=== PATIENT | male | born 1965 | race Caucasian/White ===

== ENCOUNTER 2019-11-09 07:48 | Day surgery (SDC) | payer BC, OTHER ==
[~2019-11-09] VITALS: Ht 180.3 cm; Wt 125.6 kg
[~2019-11-09 07:48] MED LIST: ACET1TAB55 PO; ALEV220T22 PO; AMLO10TA5 PO; NS 1,000 ML IV ONE; PANT40TA3 PO
[2019-11-09] MEDS ORDERED: LIDOCAINE 2% INJ 100 MG/5 ML SDV (FOR ANES.) As Ordered ONE (08:47)
[2019-11-09] MEDS ORDERED: propofoL 200 MG/20 ML VIAL As Ordered ONE (08:47)
[2019-11-09] MEDS ORDERED: fentaNYL 100 MCG/2 ML INJECTION (J3010) As Ordered ONE (08:49)
--- NOTE | 2019-11-09 09:30 | ROOR ---
Patient Name: Hiro Farrell Procedure Date: 11/09/2019 9:10 AM Date of : 1965 Age: 54 Room: [facility] Gender: Male Note Status: Finalized Procedure: Upper Endoscopy + Biopsies Indications: Heartburn, Exclusion of Henderson's esophagus Providers: Fabrice Pacheco MD Referring MD: [facility] Sangeeta [facility]ARG[facility], Admin. Requesting Provider: Medicines: Monitored Anesthesia Care Complications: No immediate complications. Procedure: Pre-Anesthesia Assessment: - The heart rate, respiratory rate, oxygen saturations, blood pressure, adequacy of pulmonary ventilation, and response to care were monitored throughout the procedure. The Endoscope was introduced through the mouth, and advanced to the second part of duodenum. The upper GI endoscopy was accomplished without difficulty. The patient tolerated the procedure well. Findings: The Z-line was variable and was found 40 cm from the incisors. Multiple biopsies were obtained with cold forceps for evaluation to rule out Henderson's Esophagus randomly at the gastroesophageal junction. Localized mild inflammation characterized by congestion (edema) and erythema was found on the greater curvature of the stomach. Biopsies were taken with a cold forceps for Helicobacter pylori testing. The examined duodenum was normal. The exam was otherwise without abnormality. Impression: - Z-line variable, 40 cm from the incisors. - Mucosal changes suspicious for gastritis. Biopsied. - Normal examined duodenum. - The examination was otherwise normal. - Multiple biopsies were obtained at the gastroesophageal junction. - The examination was otherwise normal. Recommendation: - Patient has a contact number available for emergencies. The signs and symptoms of potential delayed complications were discussed with the patient. Return to normal activities tomorrow. Written discharge instructions were provided to the patient. - High fiber diet. - Discharge patient to home. - Continue present medications. - Await pathology results. - Telephone GI clinic for pathology results in 1 week. - Return to referring physician. - Repeat upper endoscopy for surveillance based on pathology results. - The findings and recommendations were discussed with the patient's family. Fabrice Pacheco MD Fabrice Pacheco MD 11/09/2019 9:29:49 AM Electronically signed by Fabrice Pacheco MD Number of Addenda: 0 Note Initiated On: 11/09/2019 9:10 AM Estimated Blood Loss: Estimated blood loss: none.
--- NOTE | 2019-11-09 09:51 | ROOR ---
Patient Name: Hiro Farrell Procedure Date: 11/09/2019 9:11 AM Date of : 1965 Age: 54 Room: [facility] Gender: Male Note Status: Finalized Procedure: Total Colonoscopy to Cecum + Cold Snare Polypectomy + Hemoclip Indications: Screening for colorectal malignant neoplasm Providers: Fabrice Pacheco MD Referring MD: [facility], Admin. Requesting Provider: Medicines: Monitored Anesthesia Care Complications: No immediate complications. Procedure: Pre-Anesthesia Assessment: - The heart rate, respiratory rate, oxygen saturations, blood pressure, adequacy of pulmonary ventilation, and response to care were monitored throughout the procedure. The Colonoscope was introduced through the anus and advanced to the cecum, identified by appendiceal orifice and ileocecal valve. The colonoscopy was performed without difficulty. The patient tolerated the procedure well. The quality of the bowel preparation was fair. Findings: The perianal and digital rectal examinations were normal. Non-bleeding internal hemorrhoids were found during retroflexion. The hemorrhoids were small and Grade I (internal hemorrhoids that do not prolapse). Multiple small and large-mouthed diverticula were found in the recto-sigmoid colon, sigmoid colon and descending colon. A small polyp was found at 30 cm proximal to the anus. The polyp was sessile. The polyp was removed with a cold snare. Resection and retrieval were complete. To prevent bleeding after the polypectomy, one hemostatic clip was successfully placed (MR conditional). There was no bleeding at the end of the procedure. The exam was otherwise without abnormality on direct and retroflexion views. Impression: - Preparation of the colon was fair. - Non-bleeding internal hemorrhoids. - Diverticulosis in the recto-sigmoid colon, in the sigmoid colon and in the descending colon. - One small polyp at 30 cm proximal to the anus, removed with a cold snare. Resected and retrieved. Clip (MR conditional) was placed. - The examination was otherwise normal on direct and retroflexion views. - The exam was otherwise normal to the cecum. Recommendation: - Patient has a contact number available for emergencies. The signs and symptoms of potential delayed complications were discussed with the patient. Return to normal activities tomorrow. Written discharge instructions were provided to the patient. - Low fiber diet. - Discharge patient to home. - Await pathology results. - Telephone GI clinic for pathology results in 1 week. - Continue present medications. - Repeat colonoscopy in 5 years for surveillance based on pathology results. - Return to referring physician. - The findings and recommendations were discussed with the patient's family. Fabrice Pacheco MD Fabrice Pacheco MD 11/09/2019 9:51:24 AM Electronically signed by Fabrice Pacheco MD Number of Addenda: 0 Note Initiated On: 11/09/2019 9:11 AM Estimated Blood Loss: Estimated blood loss: none.
[2019-11-09 10:20] VITALS: BP 148/85
== END 2019-11-09 10:52 | disposition home or self-care (01) ==
LOC: M OPP 07:48
PROVIDERS: ATTEND Internal Medicine Gastroenterology
DX: Z12.11 Encounter for screening for malignant neoplasm of colon (principal); K64.0 First degree hemorrhoids; D12.6 Benign neoplasm of colon, unspecified; K57.30 Diverticulosis of large intestine without perforation or abscess without bleeding; K22.8 Other specified diseases of esophagus; K31.89 Other diseases of stomach and duodenum; R12 Heartburn; Z79.899 Other long term (current) drug therapy; Z87.891 Personal history of nicotine dependence
CPT/HCPCS: 45385; 88305; J3010

== ENCOUNTER → 2021-09-21 | Outpatient (REF) ==
[~2021-09-21] MED LIST changes: -AMLO10TA5 PO; +AMLO1TAB25 PO; -NS 1,000 ML IV ONE; +PANT40TA29 PO; -PANT40TA3 PO
== END ==
LOC: M LABSMTC 12:15
PROVIDERS: ATTEND Pediatrics
DX: Z11.52 Encounter for screening for COVID-19 (principal)